=== PATIENT | female | born 1960 | race Caucasian/White ===

== ENCOUNTER → 2017-08-14 | Outpatient (CLI) | payer OTHER ==
[2017-08-14 14:35] LABS: ALBUMIN 4.6 gm/dL (3.5-5.0); BASO # 0.1 (0.0-0.2); BASO % 0.8 % (0.0-2.0); BILIRUBIN,TOTAL 0.6 mg/dL (0.0-1.0); CALCIUM 9.6 mg/dL (8.4-10.2); CHOLESTEROL RISK RATIO 4.5; CREATININE, serum 1.06 mg/dL (0.52-1.25); EOS # 0.3 (0.0-0.7); EOS % 3.6 % (0-4.0); GRAN # 5.1 (1.4-6.5); GRAN % 59.3 % (42.2-75.2); HEMATOCRIT 42.4 % (37.0-47.0); HEMOGLOBIN 13.7 g/dl (12.5-16.0); LYMPH # 2.4 (1.2-3.4); LYMPH % 28.3 % (20.0-51.0); MEAN CELL VOLUME 97 fl (80.0-100.0); MEAN CORPUSCULAR HEMOGLOBIN 31 pg (27.0-31.0); MEAN CORPUSCULAR HGB CONC 32 g/dl (33.0-37.0); MONO # 0.7 (0.1-0.6); MONO % 7.8 % (1.7-9.3); PLATELET COUNT 341 K/mm3 (130-400); POTASSIUM 4.6 mmol/L (3.4-5.0); RED BLOOD COUNT 4.36 M/mm3 (4.10-5.30); REDCELL DISTRIBUTION WIDTH-CV 13.2 % (11.5-14.5); TOTAL PROTEIN 7.6 gm/dL (6.4-8.2)
[2017-08-14 15:04] LABS: TSH w REFLEX 1.26 uIU/mL (0.465-4.680)
== END ==
LOC: COL.LAB 10:25
PROVIDERS: Family Medicine
DX: Z13.1 Encounter for screening for diabetes mellitus (principal); E03.9 Hypothyroidism, unspecified; E78.5 Hyperlipidemia, unspecified; E53.8 Deficiency of other specified B group vitamins; E55.9 Vitamin D deficiency, unspecified

== ENCOUNTER 2019-02-04 08:41 | Emergency (ER) | payer OTHER ==
[~2019-02-04] VITALS: Ht 162.6 cm; Wt 120.5 kg
[2019-02-04 08:45] VITALS: BP 150/80
[2019-02-04] MEDS ORDERED: SYNTHROID0.075 MG/T PO (09:00)
[2019-02-04] MEDS ORDERED: LOTREL 10 MG-401 CAP PO (09:01)
[2019-02-04] MEDS ORDERED: WELLBUTRIN XL150 MG PO (09:01)
[2019-02-04] MEDS ORDERED: CLEOCIN HC150 MG/CAP (09:02)
[2019-02-04] MEDS ORDERED: DOXYCYCLINE 10100 MG PO (09:02)
[2019-02-04] MEDS ORDERED: ASPIRIN 81M81 MG/TA2 PO (09:15)
[2019-02-04 09:32] LABS: BASO # 0.1 (0.0-0.2); BASO % 0.7 % (0.0-2.0); EOS # 0.4 (0.0-0.7); EOS % 3.3 % (0-4.0); GRAN % 69.1 % (42.2-75.2); HEMATOCRIT 41.9 % (37.0-47.0); HEMOGLOBIN 13.9 g/dl (12.5-16.0); LYMPH # 2.3 (1.2-3.4); LYMPH % 19.5 % (20.0-51.0); MEAN CELL VOLUME 96 fl (80.0-100.0); MEAN CORPUSCULAR HEMOGLOBIN 32 pg (27.0-31.0); MEAN CORPUSCULAR HGB CONC 33 g/dl (33.0-37.0); MEAN PLATELET VOLUME 9.3 fl (7.4-10.4); MONO # 0.8 (0.1-0.6); MONO % 6.9 % (1.7-9.3); PLATELET COUNT 322 K/mm3 (130-400); RED BLOOD COUNT 4.35 M/mm3 (4.10-5.30); REDCELL DISTRIBUTION WIDTH-CV 13.6 % (11.5-14.5)
[2019-02-04] MEDS ORDERED: PREDNISONE20 MG PO (09:45)
[2019-02-04 09:52] LABS: ALBUMIN 4.2 gm/dL (3.5-5.0); BILIRUBIN,TOTAL 0.4 mg/dL (0.0-1.0); C-REACTIVE PROTEIN 1.2 mg/dL (0.0-0.9); CALCIUM 9.5 mg/dL (8.4-10.2); CREATININE, serum 1.24 (0.52-1.25); POTASSIUM 4.5 mmol/L (3.4-5.0); TOTAL PROTEIN 7.8 gm/dL (6.4-8.2)
[2019-02-04 10:14] VITALS: PULSE 99; TEMP 98.9
== END 2019-02-04 10:26 | disposition home or self-care (01) ==
LOC: COL.ER 08:41
PROVIDERS: Physician Assistant
DX: R68.84 Jaw pain (principal); J98.01 Acute bronchospasm; H61.21 Impacted cerumen, right ear; E03.9 Hypothyroidism, unspecified; F17.210 Nicotine dependence, cigarettes, uncomplicated; Z79.82 Long term (current) use of aspirin; Z88.0 Allergy status to penicillin

== ENCOUNTER 2019-02-11 11:30 | Outpatient (RCR) | payer OTHER ==
[~2019-02-11 11:30] MED LIST: ASPIRIN 81M81 MG/TA2 PO; CLEOCIN HC150 MG/CAP; DOXYCYCLINE 10100 MG PO; LOTREL 10 MG-401 CAP PO; PREDNISONE20 MG PO; SYNTHROID0.075 MG/T PO; WELLBUTRIN XL150 MG PO
== END 2019-03-26 18:05 | disposition home or self-care (01) ==
LOC: WSOT 11:30
DX: M79.641 Pain in right hand (principal); M79.642 Pain in left hand

== ENCOUNTER → 2019-05-04 | Outpatient (CLI) | payer OTHER ==
[2019-05-04 17:22] LABS: BASO % 0.6 % (0.0-2.0); EOS # 0.4 (0.0-0.7); EOS % 5.4 % (0-4.0); GRAN # 3.2 (1.4-6.5); HEMATOCRIT 42.2 % (37.0-47.0); HEMOGLOBIN 13.5 g/dl (12.5-16.0); LYMPH # 2.3 (1.2-3.4); LYMPH % 35.8 % (20.0-51.0); MEAN CELL VOLUME 101 fl (80.0-100.0); MEAN CORPUSCULAR HEMOGLOBIN 32 pg (27.0-31.0); MEAN CORPUSCULAR HGB CONC 32 g/dl (33.0-37.0); MEAN PLATELET VOLUME 9.8 fl (7.4-10.4); MONO # 0.6 (0.1-0.6); PLATELET COUNT 325 K/mm3 (130-400); RED BLOOD COUNT 4.19 M/mm3 (4.10-5.30); REDCELL DISTRIBUTION WIDTH-CV 14.6 % (11.5-14.5)
[2019-05-04 17:25] LABS: ALBUMIN 4.4 gm/dL (3.5-5.0); BILIRUBIN,TOTAL 0.2 mg/dL (0.0-1.0); CALCIUM 9.6 mg/dL (8.4-10.2); CHOLESTEROL RISK RATIO 6.6; CREATININE, serum 0.92 (0.52-1.25); POTASSIUM 5.1 mmol/L (3.4-5.0)
[2019-05-04 17:30] LABS: URINE PROTEIN:CREAT RATIO 0.24 (0.00-0.14)
[2019-05-04 17:54] LABS: THYROID STIMULATING HORMONE 0.949 uIU/mL (0.465-4.680)
== END ==
LOC: ZCOL.LAB 16:54
PROVIDERS: Family Medicine
DX: E78.5 Hyperlipidemia, unspecified (principal); E03.9 Hypothyroidism, unspecified; I10 Essential (primary) hypertension

== ENCOUNTER → 2019-10-04 | Outpatient (CLI) | payer OTHER | LOC: COL.RAD 16:58 | DX: M19.071 Primary osteoarthritis, right ankle and foot (principal); M77.9 Enthesopathy, unspecified ==

== ENCOUNTER 2019-10-18 09:27 | Emergency (ER) | payer OTHER ==
[~2019-10-18] VITALS: Ht 162.6 cm; Wt 72.3 kg
[2019-10-18 09:33] VITALS: TEMP 97.5
[2019-10-18] MEDS ORDERED: CLEOCIN HCL300 MG PO (10:09)
[2019-10-18 10:31] VITALS: BP 135/78; PULSE 98
== END 2019-10-18 10:34 | disposition home or self-care (01) ==
LOC: COL.ER 09:27
DX: K04.7 Periapical abscess without sinus (principal); R06.2 Wheezing; I10 Essential (primary) hypertension; E03.9 Hypothyroidism, unspecified; J44.9 Chronic obstructive pulmonary disease, unspecified; F41.9 Anxiety disorder, unspecified; F17.210 Nicotine dependence, cigarettes, uncomplicated; Z88.0 Allergy status to penicillin; Z79.82 Long term (current) use of aspirin

== ENCOUNTER 2019-12-14 09:00 | Outpatient (RCR) | payer OTHER ==
[2019-11-08 13:03] VITALS: BP 146/71; PULSE 113; TEMP 99.3
[2019-11-08 13:27] LABS: BASO # 0.1 (0.0-0.2); BASO % 1.1 % (0.0-2.0); EOS # 0.3 (0.0-0.7); EOS % 2.5 % (0-4.0); GRAN # 6.9 (1.4-6.5); GRAN % 69.3 % (42.2-75.2); HEMOGLOBIN 11.8 g/dl (12.5-16.0); LYMPH # 1.9 (1.2-3.4); LYMPH % 19.1 % (20.0-51.0); MEAN CELL VOLUME 93 fl (80.0-100.0); MEAN CORPUSCULAR HEMOGLOBIN 30 pg (27.0-31.0); MEAN CORPUSCULAR HGB CONC 32 g/dl (33.0-37.0); MEAN PLATELET VOLUME 8.8 fl (7.4-10.4); MONO # 0.8 (0.1-0.6); MONO % 7.6 % (1.7-9.3); PLATELET COUNT 492 K/mm3 (130-400); RED BLOOD COUNT 3.96 M/mm3 (4.10-5.30); REDCELL DISTRIBUTION WIDTH-CV 14.6 % (11.5-14.5)
[2019-11-08 13:41] LABS: ALBUMIN 4.2 gm/dL (3.5-5.0); BILIRUBIN,TOTAL 0.4 mg/dL (0.0-1.0); C-REACTIVE PROTEIN 2.3 mg/dL (0.0-0.9); CALCIUM 9.7 mg/dL (8.4-10.2); CREATININE, serum 1.17 (0.52-1.25); POTASSIUM 4.2 mmol/L (3.4-5.0); TOTAL PROTEIN 7.9 gm/dL (6.4-8.2)
[2019-11-08 13:48] LABS: ERYTHROCYTE SEDIMENTATION RATE 63 mm/hr (0-30)
[2019-11-09 07:20] VITALS: BP 113/67; PULSE 100; TEMP 98.7
[2019-11-10 09:32] VITALS: BP 116/92; PULSE 90; TEMP 98
[2019-11-11 09:42] VITALS: BP 121/68; PULSE 90; TEMP 97.3
[2019-11-12 09:04] VITALS: BP 128/76; PULSE 86; TEMP 97.6
[2019-11-13 08:02] VITALS: BP 120/66; PULSE 75; TEMP 98.4
[2019-11-14 09:16] VITALS: BP 124/80; PULSE 88; TEMP 97.7
[2019-11-15 09:23] VITALS: BP 107/63; PULSE 83; TEMP 98.7
--- NOTE | 2019-11-15 10:20 | NUR ---
with sterile technique right upper arm PICC dressing change done with insertion site cleansed with ChloraPrep 1, chlorhexidine impregnated disc applied, skin prep, StatLock, and Tegaderm applied. No signs or symptoms of IV complications noted. No concerns voiced. According to the patient, her dressing became wet during shower this a.m. arm wrapped with Julio to protect catheter. Patient to return as scheduled for cares. Patient voiced understanding of instructions.
[2019-11-15 10:44] LABS: BASO # 0.1 (0.0-0.2); BASO % 0.9 % (0.0-2.0); EOS # 0.4 (0.0-0.7); EOS % 6.7 % (0-4.0); GRAN # 3.5 (1.4-6.5); GRAN % 55.4 % (42.2-75.2); HEMOGLOBIN 11.4 g/dl (12.5-16.0); LYMPH # 1.8 (1.2-3.4); LYMPH % 27.9 % (20.0-51.0); MEAN CELL VOLUME 96 fl (80.0-100.0); MEAN CORPUSCULAR HEMOGLOBIN 30 pg (27.0-31.0); MEAN CORPUSCULAR HGB CONC 31 g/dl (33.0-37.0); MEAN PLATELET VOLUME 9.2 fl (7.4-10.4); MONO # 0.6 (0.1-0.6); MONO % 8.8 % (1.7-9.3); PLATELET COUNT 414 K/mm3 (130-400); REDCELL DISTRIBUTION WIDTH-CV 14.8 % (11.5-14.5)
[2019-11-15 11:00] LABS: HEMATOCRIT 36.6 % (37.0-47.0)
[2019-11-15 11:02] LABS: ALANINE AMINOTRANSFERASE 13 U/L (4-34); ALBUMIN 3.8 gm/dL (3.5-5.0); ALKALINE PHOSPHATASE 104 U/L (50-136); ANION GAP 6 mmol/L (7-16); AST,SGOT 25 U/L (15-37); BILIRUBIN,TOTAL 0.3 mg/dL (0.0-1.0); BLOOD UREA NITROGEN 21 mg/dL (7-17); CALCIUM 9.4 mg/dL (8.4-10.2); CARBON DIOXIDE 25 mmol/L (22-30); CHLORIDE 105 mmol/L (98-107); CREATININE, serum 0.85 (0.52-1.25); GLUCOSE 82 mg/dL (74-106); POTASSIUM 4.5 mmol/L (3.4-5.0); SODIUM 136 mmol/L (137-145); TOTAL PROTEIN 6.9 gm/dL (6.4-8.2)
[2019-11-15 11:06] LABS: C-REACTIVE PROTEIN < 0.5 mg/dL (0.0-0.9)
[2019-11-15 11:49] LABS: ERYTHROCYTE SEDIMENTATION RATE 22 mm/hr (0-30)
[2019-11-16 09:26] VITALS: BP 108/71; PULSE 83; TEMP 97.8
[2019-11-17 09:08] VITALS: BP 154/77; PULSE 95; TEMP 98
[2019-11-18 09:28] VITALS: BP 126/60; PULSE 93; TEMP 98
[2019-11-19 09:48] VITALS: BP 137/84; PULSE 83; TEMP 98.1
[2019-11-20 09:28] VITALS: BP 119/72; PULSE 86; TEMP 98.7
[2019-11-21 08:42] VITALS: BP 110/62; PULSE 79; TEMP 98.1
[2019-11-22 09:25] LABS: BASO # 0.1 (0.0-0.2); BASO % 1.4 % (0.0-2.0); EOS # 0.3 (0.0-0.7); EOS % 5.6 % (0-4.0); GRAN # 3.4 (1.4-6.5); GRAN % 58.6 % (42.2-75.2); HEMATOCRIT 37.3 % (37.0-47.0); HEMOGLOBIN 11.6 g/dl (12.5-16.0); LYMPH # 1.5 (1.2-3.4); LYMPH % 25.4 % (20.0-51.0); MEAN CELL VOLUME 95 fl (80.0-100.0); MEAN CORPUSCULAR HEMOGLOBIN 30 pg (27.0-31.0); MEAN CORPUSCULAR HGB CONC 31 g/dl (33.0-37.0); MEAN PLATELET VOLUME 8.8 fl (7.4-10.4); MONO # 0.5 (0.1-0.6); MONO % 8.7 % (1.7-9.3); PLATELET COUNT 329 K/mm3 (130-400); RED BLOOD COUNT 3.91 M/mm3 (4.10-5.30); REDCELL DISTRIBUTION WIDTH-CV 14.6 % (11.5-14.5)
[2019-11-22 09:41] VITALS: BP 109/57; PULSE 71; TEMP 98.6
[2019-11-22 09:58] LABS: ALBUMIN 4.1 gm/dL (3.5-5.0); BILIRUBIN,TOTAL 0.4 mg/dL (0.0-1.0); CALCIUM 9.4 mg/dL (8.4-10.2); CREATININE, serum 1.03 (0.52-1.25); POTASSIUM 4.5 mmol/L (3.4-5.0); TOTAL PROTEIN 7.3 gm/dL (6.4-8.2)
[2019-11-23 08:57] VITALS: BP 106/67; PULSE 91; TEMP 98.5
--- NOTE | 2019-11-23 09:15 | NUR ---
PICC intact right upper arm with sterile dressing change done with insertion site cleansed with chloraprep x 1, chlorhexidine impregnated disk applied, skin prep, stat lock, and tegaderm applied. no signs or symptoms of IV complications noted. no concerns voiced. re-wrapped with lynette to protect catheter. to continue with cares in [place]. voiced understanding of instructions.
[2019-11-24 09:00] VITALS: BP 112/60; PULSE 89; TEMP 98.2
[2019-11-25 09:41] VITALS: BP 105/57; PULSE 80; TEMP 97.6
[2019-11-26 09:06] VITALS: BP 102/60; PULSE 98; TEMP 98.1
[2019-11-27 08:15] VITALS: BP 97/63; PULSE 81; TEMP 99.4
[2019-11-28 09:08] VITALS: BP 115/76; PULSE 96; TEMP 98.4
[2019-11-29 09:15] VITALS: BP 121/68; PULSE 89; TEMP 98.8
[2019-11-29 09:34] LABS: ALANINE AMINOTRANSFERASE 26 U/L (4-34); ALBUMIN 4.2 gm/dL (3.5-5.0); ALKALINE PHOSPHATASE 94 U/L (50-136); ANION GAP 10 mmol/L (7-16); AST,SGOT 33 U/L (15-37); BILIRUBIN,TOTAL 0.4 mg/dL (0.0-1.0); BLOOD UREA NITROGEN 23 mg/dL (7-17); C-REACTIVE PROTEIN < 0.5 mg/dL (0.0-0.9); CALCIUM 9.1 mg/dL (8.4-10.2); CARBON DIOXIDE 19 mmol/L (22-30); CHLORIDE 110 mmol/L (98-107); GLUCOSE 85 mg/dL (74-106); POTASSIUM 4.3 mmol/L (3.4-5.0); SODIUM 138 mmol/L (137-145); TOTAL PROTEIN 7.6 gm/dL (6.4-8.2)
[2019-11-29 09:43] LABS: HEMATOCRIT 37.7 % (37.0-47.0); MEAN CELL VOLUME 95 fl (80.0-100.0); MEAN CORPUSCULAR HEMOGLOBIN 30 pg (27.0-31.0); MEAN CORPUSCULAR HGB CONC 32 g/dl (33.0-37.0); MEAN PLATELET VOLUME 9.3 fl (7.4-10.4); PLATELET COUNT 343 K/mm3 (130-400); RED BLOOD COUNT 3.99 M/mm3 (4.10-5.30); REDCELL DISTRIBUTION WIDTH-CV 14.8 % (11.5-14.5)
[2019-11-29 10:02] LABS: ERYTHROCYTE SEDIMENTATION RATE 11 mm/hr (0-30)
[2019-11-29 10:40] LABS: BAND 1 % (0-10); EOSINOPHIL 7 % (0-4); NEUTROPHILS 53 % (42.0-75.2)
[2019-11-29 10:44] LABS: LYMPHOCYTE 36 % (20.0-51.0); PLATELET ESTIMATE NORMAL (NORMAL)
[2019-11-29 10:46] LABS: ANISOCYTOSIS 1+
[2019-11-29 10:47] LABS: OVALOCYTES 1+
--- NOTE | 2019-11-30 09:00 | NUR ---
PICC intact right upper arm. With sterile technique right upper arm PICC dressing change done with insertion site cleansed with ChloraPrep 1, chlorhexidine impregnated disc applied, skin prep, StatLock, and Tegaderm applied. No signs or symptoms of IV complications noted. No concerns voiced. Arm wrapped with Julio to protect catheter. Continue with cares and express unit. Patient voiced understanding of instructions.
[2019-11-30 09:01] VITALS: BP 108/65; PULSE 91; TEMP 98.4
[2019-12-01 09:15] VITALS: BP 100/63; PULSE 78; TEMP 97.8
--- NOTE | 2019-12-02 10:22 | NUR ---
Pt has appointment at 1630 in [place]. We had discussed her coming in early for the antibiotic, pt states " well we just got to [place], so I will be there tomorrow."
--- NOTE | 2019-12-02 13:26 | NUR ---
This nurse visited with pt via phone.Pt reports she has apt in [place] but can be back by 7.Encouraged pt to come for her abx today,encouraged pt to not miss a dose.Pt agreed to come for infusion upon return.
[2019-12-02 19:57] VITALS: BP 111/69; PULSE 77; TEMP 97.3
[2019-12-03 11:27] VITALS: BP 148/75; PULSE 91; TEMP 98.4
[2019-12-04 08:15] VITALS: BP 125/72; PULSE 85; TEMP 98.6
[2019-12-05 08:30] VITALS: BP 122/65; PULSE 90; TEMP 98.4
[2019-12-06 09:29] LABS: BASO # 0.1 (0.0-0.2); BASO % 1.2 % (0.0-2.0); EOS # 0.3 (0.0-0.7); EOS % 6.6 % (0-4.0); GRAN # 2.4 (1.4-6.5); GRAN % 49.5 % (42.2-75.2); HEMATOCRIT 37.8 % (37.0-47.0); HEMOGLOBIN 11.9 g/dl (12.5-16.0); LYMPH # 1.6 (1.2-3.4); LYMPH % 33.7 % (20.0-51.0); MEAN CELL VOLUME 95 fl (80.0-100.0); MEAN CORPUSCULAR HEMOGLOBIN 30 pg (27.0-31.0); MEAN CORPUSCULAR HGB CONC 32 g/dl (33.0-37.0); MEAN PLATELET VOLUME 9.2 fl (7.4-10.4); MONO # 0.4 (0.1-0.6); MONO % 8.8 % (1.7-9.3); PLATELET COUNT 281 K/mm3 (130-400); RED BLOOD COUNT 3.97 M/mm3 (4.10-5.30); REDCELL DISTRIBUTION WIDTH-CV 14.9 % (11.5-14.5)
[2019-12-06 09:35] LABS: ALANINE AMINOTRANSFERASE 25 U/L (4-34); ALBUMIN 4.2 gm/dL (3.5-5.0); ALKALINE PHOSPHATASE 83 U/L (50-136); ANION GAP 8 mmol/L (7-16); AST,SGOT 35 U/L (15-37); BILIRUBIN,TOTAL 0.4 mg/dL (0.0-1.0); BLOOD UREA NITROGEN 20 mg/dL (7-17); C-REACTIVE PROTEIN < 0.5 mg/dL (0.0-0.9); CALCIUM 9.2 mg/dL (8.4-10.2); CARBON DIOXIDE 22 mmol/L (22-30); CHLORIDE 108 mmol/L (98-107); CREATININE, serum 1.07 (0.52-1.25); GLUCOSE 81 mg/dL (74-106); POTASSIUM 4.7 mmol/L (3.4-5.0); SODIUM 138 mmol/L (137-145); TOTAL PROTEIN 7.3 gm/dL (6.4-8.2)
[2019-12-06 09:39] VITALS: BP 121/68; PULSE 81; TEMP 98.4
[2019-12-06 10:02] LABS: ERYTHROCYTE SEDIMENTATION RATE 10 mm/hr (0-30)
[2019-12-07 09:26] VITALS: BP 126/75; PULSE 95; TEMP 98.4
[2019-12-08 09:42] VITALS: BP 127/62; PULSE 60; TEMP 98.4
[2019-12-09 09:15] VITALS: BP 133/69; PULSE 66; TEMP 98.6
[2019-12-10 09:08] VITALS: BP 146/87; PULSE 88; TEMP 98.1
[2019-12-11 08:41] VITALS: BP 118/74; PULSE 52; TEMP 98.4
[2019-12-12 08:31] VITALS: BP 117/70; PULSE 79; TEMP 99.1
[2019-12-13 08:35] VITALS: BP 110/65; PULSE 77; TEMP 98.8
[~2019-12-14] VITALS: Ht 162.6 cm; Wt 108.3 kg
[2019-12-14 09:00] VITALS: BP 111/72; PULSE 70; TEMP 98.4
[~2019-12-14 09:00] MED LIST changes: +ASPIRIN PO; +CLEOCIN HCL300 MG PO; +EFFEXOR-XR150 MG PO; +INVANZ INJ1 G/VIAL IV; +SYNTHROID0.088 MG/T PO
--- NOTE | 2019-12-14 09:50 | NUR ---
here for cares. With sterile technique right upper arm PICC dressing change done with insertion site cleansed with ChloraPrep 1, chlorhexidine impregnated disc applied, skin prep, StatLock, and Tegaderm applied. No signs or symptoms of IV complications noted. No concerns voiced. Patient return next week for cares. Patient voiced understanding of instructions.
[2019-12-14 09:55] LABS: BASO # 0.1 (0.0-0.2); EOS # 0.3 (0.0-0.7); EOS % 5.7 % (0-4.0); GRAN # 2.7 (1.4-6.5); GRAN % 53.5 % (42.2-75.2); HEMOGLOBIN 10.9 g/dl (12.5-16.0); LYMPH # 1.6 (1.2-3.4); MEAN CELL VOLUME 95 fl (80.0-100.0); MEAN CORPUSCULAR HEMOGLOBIN 30 pg (27.0-31.0); MEAN CORPUSCULAR HGB CONC 31 g/dl (33.0-37.0); MEAN PLATELET VOLUME 9.2 fl (7.4-10.4); MONO # 0.4 (0.1-0.6); MONO % 7.6 % (1.7-9.3); PLATELET COUNT 230 K/mm3 (130-400); RED BLOOD COUNT 3.66 M/mm3 (4.10-5.30); REDCELL DISTRIBUTION WIDTH-CV 14.6 % (11.5-14.5)
[2019-12-14 10:16] LABS: ALANINE AMINOTRANSFERASE 19 U/L (4-34); ALBUMIN 3.7 gm/dL (3.5-5.0); ALKALINE PHOSPHATASE 79 U/L (50-136); ANION GAP 6 mmol/L (7-16); AST,SGOT 24 U/L (15-37); BILIRUBIN,TOTAL 0.3 mg/dL (0.0-1.0); BLOOD UREA NITROGEN 15 mg/dL (7-17); CALCIUM 9.1 mg/dL (8.4-10.2); CARBON DIOXIDE 25 mmol/L (22-30); CHLORIDE 108 mmol/L (98-107); CREATININE, serum 0.79 (0.52-1.25); GLUCOSE 91 mg/dL (74-106); POTASSIUM 4.1 mmol/L (3.4-5.0); SODIUM 138 mmol/L (137-145); TOTAL PROTEIN 6.6 gm/dL (6.4-8.2)
[2019-12-14 10:17] LABS: C-REACTIVE PROTEIN < 0.5 mg/dL (0.0-0.9)
[2019-12-14 10:28] LABS: HEMATOCRIT 34.7 % (37.0-47.0)
[2019-12-14 11:17] LABS: ERYTHROCYTE SEDIMENTATION RATE 10 mm/hr (0-30)
--- NOTE | 2019-12-16 09:02 | NUR ---
Per pt report she is still in hospital at .
== END 2019-12-16 09:02 | disposition home or self-care (01) ==
LOC: EUO 09:00
PROVIDERS: Internal Medicine Infectious Disease; Nurse Practitioner
DX: Z45.2 Encounter for adjustment and management of vascular access device (principal); A42.9 Actinomycosis, unspecified; R22.0 Localized swelling, mass and lump, head; L02.01 Cutaneous abscess of face; M27.2 Inflammatory conditions of jaws; Z79.899 Other long term (current) drug therapy
CPT/HCPCS: C1751; J1335

== ENCOUNTER → 2020-01-31 | Outpatient (CLI) | payer OTHER ==
[2020-01-31 10:06] LABS: BASO # 0.1 (0.0-0.2); BASO % 1.6 % (0.0-2.0); EOS # 0.7 (0.0-0.7); EOS % 14.3 % (0-4.0); GRAN # 2.2 (1.4-6.5); GRAN % 42.5 % (42.2-75.2); LYMPH # 1.6 (1.2-3.4); MEAN CELL VOLUME 90 fl (80.0-100.0); MEAN CORPUSCULAR HEMOGLOBIN 28 pg (27.0-31.0); MEAN CORPUSCULAR HGB CONC 31 g/dl (33.0-37.0); MEAN PLATELET VOLUME 9.9 fl (7.4-10.4); MONO # 0.5 (0.1-0.6); MONO % 9.4 % (1.7-9.3); PLATELET COUNT 367 K/mm3 (130-400); RED BLOOD COUNT 3.58 M/mm3 (4.10-5.30); REDCELL DISTRIBUTION WIDTH-CV 15.4 % (11.5-14.5)
[2020-01-31 10:07] LABS: ALBUMIN 4.1 gm/dL (3.5-5.0); BILIRUBIN,TOTAL 0.4 mg/dL (0.0-1.0); CALCIUM 9.3 mg/dL (8.4-10.2); CREATININE, serum 1.07 (0.52-1.25); POTASSIUM 4.6 mmol/L (3.4-5.0); TOTAL PROTEIN 7.3 gm/dL (6.4-8.2)
[2020-01-31 10:08] LABS: C-REACTIVE PROTEIN 0.5 mg/dL (0.0-0.9)
[2020-01-31 10:13] LABS: HEMATOCRIT 32.3 % (37.0-47.0)
[2020-01-31 10:35] LABS: ERYTHROCYTE SEDIMENTATION RATE 13 mm/hr (0-30)
== END ==
LOC: ZCOL.LAB 09:46
PROVIDERS: Internal Medicine Infectious Disease
DX: M27.2 Inflammatory conditions of jaws (principal)

== ENCOUNTER → 2020-02-14 | Outpatient (CLI) | payer OTHER ==
[2020-02-14 17:38] LABS: BASO # 0.1 (0.0-0.2); BASO % 1.5 % (0.0-2.0); EOS # 0.9 (0.0-0.7); EOS % 12.8 % (0-4.0); GRAN # 2.4 (1.4-6.5); GRAN % 36.1 % (42.2-75.2); LYMPH # 2.7 (1.2-3.4); LYMPH % 39.8 % (20.0-51.0); MEAN CELL VOLUME 90 fl (80.0-100.0); MEAN CORPUSCULAR HGB CONC 30 g/dl (33.0-37.0); MEAN PLATELET VOLUME 9.5 fl (7.4-10.4); MONO # 0.7 (0.1-0.6); MONO % 9.7 % (1.7-9.3); PLATELET COUNT 397 K/mm3 (130-400); RED BLOOD COUNT 3.48 M/mm3 (4.10-5.30)
[2020-02-14 17:41] LABS: HEMATOCRIT 31.4 % (37.0-47.0); HEMOGLOBIN 9.5 g/dl (12.5-16.0); MEAN CORPUSCULAR HEMOGLOBIN 27 pg (27.0-31.0)
[2020-02-14 17:58] LABS: ERYTHROCYTE SEDIMENTATION RATE 14 mm/hr (0-30)
[2020-02-14 18:28] LABS: ALBUMIN 3.9 gm/dL (3.5-5.0); BILIRUBIN,TOTAL 0.3 mg/dL (0.0-1.0); C-REACTIVE PROTEIN 0.6 mg/dL (0.0-0.9); CREATININE, serum 1.1 (0.52-1.25); POTASSIUM 4.7 mmol/L (3.4-5.0)
== END ==
LOC: ZCOL.LAB 17:29
PROVIDERS: Internal Medicine Infectious Disease
DX: M27.2 Inflammatory conditions of jaws (principal)

== ENCOUNTER → 2020-02-21 | Outpatient (CLI) | payer OTHER | LOC: COL.LAB 09:04 | DX: Z01.818 Encounter for other preprocedural examination (principal); Z20.828 Contact with and (suspected) exposure to other viral communicable diseases ==

== ENCOUNTER 2020-11-30 08:19 | Outpatient (CLI) | payer OTHER ==
[~2020-11-30] VITALS: Ht 162.6 cm; Wt 112.8 kg
[2020-11-30] MEDS ORDERED: MULTIPLE VITAMI1 TA5 PO (08:45)
[2020-11-30 10:00] VITALS: BP 133/66; PULSE 60; TEMP 98
--- NOTE | 2020-11-30 10:10 | NUR ---
picc inserted and instructed given by IVS, pt discharged with information
== END 2020-11-30 10:10 | disposition home or self-care (01) ==
LOC: EUO 08:19
DX: Z45.2 Encounter for adjustment and management of vascular access device (principal); M27.2 Inflammatory conditions of jaws; K04.7 Periapical abscess without sinus; Z79.2 Long term (current) use of antibiotics
CPT/HCPCS: C1751

== ENCOUNTER 2020-12-29 13:00 | Outpatient (RCR) | payer OTHER ==
[2020-12-15 14:49] VITALS: BP 110/62; PULSE 71; TEMP 97.3
[2020-12-22 17:03] VITALS: BP 132/79; PULSE 76; TEMP 98.2
[~2020-12-29] VITALS: Ht 162.6 cm; Wt 111.1 kg
[~2020-12-29 13:00] MED LIST changes: +MULTIPLE VITAMI1 TA5 PO
[2020-12-29 14:50] VITALS: BP 118/63; PULSE 71; TEMP 98
== END 2020-12-29 14:56 ==
LOC: EUO 13:00
DX: D50.9 Iron deficiency anemia, unspecified (principal)
CPT/HCPCS: J1756